=== PATIENT | female | born 2000 ===

== ENCOUNTER 2020-04-25 16:29 | Outpatient (REF) | payer OTHER, SELFPAY ==
[2020-04-25 17:55] LABS: HCG Quantitative < 2 mIU/mL
== END 2020-04-25 16:30 | disposition home or self-care (01) ==
LOC: HO.LAB 16:29
PROVIDERS: Visit Provider Advanced Practice Midwife
DX: O20.0 Threatened abortion (principal); Z3A.00 Weeks of gestation of pregnancy not specified
CPT/HCPCS: 36415; 84702

== ENCOUNTER 2020-08-12 18:21 | Emergency (ER) | payer OTHER, SELFPAY | END 2020-08-12 22:16 | disposition left against medical advice (07) | PROVIDERS: Emergency Provider Emergency Medicine | DX: O26.899 Other specified pregnancy related conditions, unspecified trimester (principal); R10.9 Unspecified abdominal pain ==

== ENCOUNTER 2020-08-29 09:24 | Outpatient (REF) | payer OTHER, SELFPAY | END 2020-08-29 09:25 | disposition home or self-care (01) | LOC: HO.LAB 09:24 | PROVIDERS: Visit Provider Internal Medicine | DX: Z20.822 Contact with and (suspected) exposure to COVID-19 (principal) | CPT/HCPCS: 36415; C9803; U0003; U0005 ==

== ENCOUNTER → 2020-09-15 10:24 | Outpatient (BNVA) | payer OTHER, SELFPAY | PROVIDERS: Visit Provider Advanced Practice Midwife | DX: Z34.90 Encounter for supervision of normal pregnancy, unspecified, unspecified trimester (principal) | CPT/HCPCS: 81025; 99202 ==

== ENCOUNTER → 2020-10-06 10:04 | Outpatient (BNVA) | payer OTHER, SELFPAY | PROVIDERS: Visit Provider Advanced Practice Midwife | DX: Z13.89 Encounter for screening for other disorder (principal) | CPT/HCPCS: 99212 ==

== ENCOUNTER 2020-10-10 12:27 | Outpatient (REF) | payer OTHER, SELFPAY ==
[2020-10-10 13:08] LABS: MANUAL DIFF FLAG NO
[2020-10-10 13:12] LABS: Basophils Percent Auto 0.3 % (0-2); Eosinophils Absolute Auto 0.1 X10*3/uL (0.0-0.4); Eosinophils Percent Auto 0.9 % (0-4); Hematocrit 38.5 % (37-47); Hemoglobin 12.8 g/dl (12.0-16.0); Imm Gran Abs Auto 0.04 X10*3/uL (0.00-0.03); Imm Gran Pct Auto 0.5 % (0.0-0.4); Lymphocytes Percent Auto 22.1 % (20-40); Mean Corpuscular HGB Conc 33.2 g/dl (31.0-35.0); Mean Corpuscular Hemoglobin 30.2 pg (27.0-33.0); Mean Corpuscular Volume 90.8 fL (80-98); Mean Platelet Volume 11.3 fL (9.4-12.3); Monocytes Absolute Auto 0.4 X10*3/uL (0.1-1.2); Monocytes Percent Auto 4.9 % (2-11); Neutrophils Absolute Auto 6.3 X10*3/uL (2.0-8.3); Neutrophils Percent Auto 71.3 % (45-73); Platelet Count 210 X10*3/uL (160-400); Red Blood Count 4.24 X10*6/uL (4.20-5.50); Red Cell Distribution Width 11.4 % (11.0-16.0); White Blood Count 8.8 X10*3/uL (4.8-10.8)
[2020-10-10 14:10] LABS: Syphilis Screen Nonreactive (Nonreactive)
[2020-10-10 14:35] LABS: Amphetamine Screen Urine Not Detected (Not Detect); Barbiturates, Urine Not Detected (Not Detect); Benzodiazepines Screen Urine Not Detected (Not Detect); Cannabinoid Screen Urine Not Detected (Not Detect); Cocaine Screen Urine Not Detected (Not Detect); Opiate Screen Urine Not Detected (Not Detect); Phencyclidine Screen Urine Not Detected (Not Detect)
[2020-10-11 04:28] LABS: HBsAGNum1 0.14 S/CO (0.00-0.99); HIV AB/AG Nonreactive (Nonreactive); HIV Num 1 0.08 S/CO (0.00-0.99); Hepatitis B Surface Antigen Negative (Negative)
[2020-10-11 04:37] LABS: ~HepC Num1 0.11 S/CO (0.00-0.79); ~Hepatitis C Antibody Nonreactive (Nonreactive)
[2020-10-11 10:23] LABS: Varicella IgG Antibody <135.00 index
== END 2020-10-10 12:28 | disposition home or self-care (01) ==
LOC: HO.LAB 12:27
PROVIDERS: Visit Provider Advanced Practice Midwife
DX: Z34.90 Encounter for supervision of normal pregnancy, unspecified, unspecified trimester (principal)
CPT/HCPCS: 80307; 85025; 86762; 86780; 86787; 86803; 86850; 86900; 86901; 87086; 87340; 87389

== ENCOUNTER 2020-10-11 14:57 | Outpatient (REF) | payer OTHER, SELFPAY | END 2020-10-11 14:58 | disposition home or self-care (01) | LOC: HO.LAB 14:57 | PROVIDERS: Visit Provider Internal Medicine | DX: Z20.822 Contact with and (suspected) exposure to COVID-19 (principal) | CPT/HCPCS: 36415; C9803; U0003; U0005 ==

== ENCOUNTER 2020-10-27 10:44 | Outpatient (REF) | payer OTHER, SELFPAY ==
[2020-10-27 17:10] LABS: CT PCR NOT DETECTED (Not Detect.); NG PCR NOT DETECTED (Not Detect.)
[2020-10-28 09:13] LABS: BV Int Neg Control Negative (Negative); BV Int Pos Control Positive (Positive)
== END 2020-10-27 10:45 | disposition home or self-care (01) ==
LOC: HO.LAB 10:44
PROVIDERS: Visit Provider Advanced Practice Midwife
DX: O09.291 Supervision of pregnancy with other poor reproductive or obstetric history, first trimester (principal); Z3A.10 10 weeks gestation of pregnancy
CPT/HCPCS: 81003; 87480; 87491; 87510; 87591; 87660; 88142; 99212

== ENCOUNTER 2020-11-04 08:22 | Outpatient (REF) | payer OTHER, SELFPAY ==
--- NOTE | ~2020-11-04 | US_ITS ---
EXAMINATION: OBSTETRICAL ULTRASOUND, FIRST TRIMESTER HISTORY: 20-year-old at 11.6 weeks of gestation NT screening COMPARISON: None in this TECHNIQUE: Real time transabdominal imaging with color and M-mode Doppler. FINDINGS: A single, live IUP CRL of 46.4 mm c/w 11.4wks is noted. Heart Rate: beats per minute. Normal yolk sac seen. NT was 1.1.mm. NB Present The embryo appears sonographically wnl for this GA. Left ovary is within normal limits. The right ovary was not visualized. GESTATIONAL AGE: 1. Established GA: 11.6 wks 2. GA from [facility]: 11.4 wks ESTIMATED DATE OF DELIVERY: 1. Established YUDY: 05/20/2021 2. YUDY from [facility]: 05/22/2021 US/US OB 1T nuc measure IMPRESSION: 1. Single live IUP 2. Size equals dates 3. NT of 1.1 mm MFM Consultation: I reviewed the ultrasound findings along with significance of NT measurement. The NT of less than 3mm is generally reassuring. However, the sensitivity for T21 detection is only 60%. I reviewed the availability of serum aneuploidy screening which includes cell-free DNA and placental protein based tests. I discussed the sensitivity, false-positive rate, and other limitations associated with each test. I also reviewed the availability of invasive diagnostic tests that are associated small but definite risk of miscarriage. We also reviewed the differences between screening tests and diagnostic tests. After our discussion, she opted for the First trimester screening that is based on cell-free DNA or non-invasive testing (NIPT). The result will be faxed to your office in approximately 7 days. A follow up at 18 weeks for survey has been scheduled. Thank you very much for this referral. Total time 20 minutes. The time spent was devoted to counseling the patient about the disease and diagnosis, coordinating care including reviewing her records, pertinent lab data and studies, as well as discussing diagnostic evaluation and workup, plan therapeutic interventions and future disposition of care. This includes any additional research needed to obtain further information in formulating the plan of care of this patient. This note was generated with a voice recognition program. Please excuse any errors which may have been overlooked during my review of this note. Sometimes these errors may affect the content or meaning of a given sentence.
== END 2020-11-04 08:23 | disposition home or self-care (01) ==
LOC: HO.US 08:22
PROVIDERS: Visit Provider Advanced Practice Midwife
DX: Z34.90 Encounter for supervision of normal pregnancy, unspecified, unspecified trimester (principal); Z36.82 Encounter for antenatal screening for nuchal translucency
CPT/HCPCS: 76813

== ENCOUNTER → 2020-11-24 10:18 | Outpatient (BNVA) | payer OTHER, SELFPAY | PROVIDERS: Visit Provider Advanced Practice Midwife | DX: O09.292 Supervision of pregnancy with other poor reproductive or obstetric history, second trimester (principal); O99.322 Drug use complicating pregnancy, second trimester; F12.20 Cannabis dependence, uncomplicated; O35.9XX0 Maternal care for (suspected) fetal abnormality and damage, unspecified, not applicable or unspecified; Z3A.14 14 weeks gestation of pregnancy | CPT/HCPCS: 81003; 99212 ==

== ENCOUNTER 2020-12-02 12:10 | Outpatient (REF) | payer OTHER, SELFPAY | END 2020-12-02 12:11 | disposition home or self-care (01) | LOC: HO.LAB 12:10 | PROVIDERS: Visit Provider Obstetrics & Gynecology | DX: R39.89 Other symptoms and signs involving the genitourinary system (principal) | CPT/HCPCS: 87086 ==

== ENCOUNTER 2020-12-23 11:32 | Outpatient (REF) | payer OTHER, SELFPAY ==
--- NOTE | ~2020-12-23 | US_ITS ---
EXAMINATION: US OBSTETRICAL CLINICAL INFORMATION: [age]-year-old at 18.5 weeks of gestation Screening for anomaly COMPARISON: 11/04/2020 TECHNIQUE: Real-time transabdominal ultrasound was performed using C1-5 megahertz transducer. FINDINGS: A single, active, fetus is seen in breech presentation. The placenta is anterior without previa, and the amniotic fluid volume is wnl. MEASUREMENTS: 1. Biparietal Diameter: 4.1 cm; 18.3 wks 2. Occipital Frontal Diameter: 5.2 cm 3. Head Circumference: 15.3 cm; 18.3 wks 4. Abdominal Circumference: 13.3 cm; 18.6 wks 5. Femur Length: 2.9 cm; 18.6 wks 6. Humerus Length: 2.6 cm; 18.2 wks 7. Tibia Length: 2.4 cm; 18.4 wks 8. Ulna Length: 2.6 cm; 19.4 wks 9. Lateral ventricle: 0.7 cm 10. Cerebellum: 1.8 cm; 18.6 wks 11. Cisterna Magna: 0.5 cm 12. Nuchal Fold: 2.8 mm 13. Heart Rate: 161 beats per minute Rt ovary: Unable to visualize Lt ovary: normal Cervical length 3.8 cm on T/A. GESTATIONAL AGE: 1. Established GA: 18.6 wks 2. GA from [facility]: 18.5 wks ESTIMATED DATE OF DELIVERY: 1. Established YUDY: 05/20/2021 2. YUDY from [facility]: 05/21/2021 ANATOMY: The visualized anatomy includes but not limited to: 1. Cranium: Normal 2. Intracranial anatomy: cavum septum pellucidi, lateral ventricles, choroid plexus, cerebellum, posterior fossa, third and fourth ventricles. 3. face: orbits, lip/palate, profile, nasal bone 4. Heart: four-chamber view of the heart, ventricular septum, foramen ovale, pulmonary vein, left and right outflow tracts, three-vessel view, 3 vessel trachea view, aortic and ductal arches, situs.. 5. Diaphragm: Normal 6. Abdominal wall: Normal 7. Cord Insertion: Normal 8. Spine: Cervical, thoracic, lumbar, sacral. 9. Stomach: Normal size and shape 10. Right Kidney: Normal 11. Left Kidney: Normal 12. 3 vessel cord: Normal 13. Upper extremity: Open hands, fifth digit. 14. Lower extremity: Tibia, fibula, bilateral feet. 15. Bladder: Normal 16. Genitalia: Female, patient aware US/US OB /maternal det add IMPRESSION: 1. Single, living, intrauterine with appropriate biometry. 2. Normal survey DISCUSSION: I reviewed today's ultrasound findings. We discussed the limitations of ultrasound in diagnosing aneuploidy and other congenital abnormalities. I reviewed the differences between screening test and diagnostic test. Amniocentesis was discussed and declined. She was informed that the baseline incidence of congenital abnormalities is approximately 3-5%. Not all these conditions are diagnosable in utero. RECOMMENDATIONS: 1. Follow-up when necessary. Thank you for allowing me to participate in her care. Total time 20 minutes. The time spent was devoted to counseling the patient about the disease and diagnosis, coordinating care including reviewing her records, pertinent lab data and studies, as well as discussing diagnostic evaluation and workup, plan therapeutic interventions and future disposition of care. This includes any additional research needed to obtain further information in formulating the plan of care of this patient. This note was generated with a voice recognition program. Please excuse any errors which may have been overlooked during my review of this note. Sometimes these errors may affect the content or meaning of a given sentence.
== END 2020-12-23 11:33 | disposition home or self-care (01) ==
LOC: HO.US 11:32
PROVIDERS: Visit Provider Obstetrics & Gynecology
DX: Z34.92 Encounter for supervision of normal pregnancy, unspecified, second trimester (principal); Z3A.18 18 weeks gestation of pregnancy
CPT/HCPCS: 76811; 76812; 81003; 99212

== ENCOUNTER → 2021-01-19 10:50 | Outpatient (BNVA) | payer OTHER, SELFPAY | PROVIDERS: Visit Provider Advanced Practice Midwife | DX: Z34.92 Encounter for supervision of normal pregnancy, unspecified, second trimester (principal); Z3A.22 22 weeks gestation of pregnancy | CPT/HCPCS: 81003; 99212 ==

== ENCOUNTER → 2021-02-16 10:26 | Outpatient (BNVA) | payer OTHER, SELFPAY | PROVIDERS: Visit Provider Advanced Practice Midwife | DX: Z34.92 Encounter for supervision of normal pregnancy, unspecified, second trimester (principal); Z3A.26 26 weeks gestation of pregnancy | CPT/HCPCS: 99212 ==

== ENCOUNTER 2021-03-03 09:48 | Outpatient (REF) | payer OTHER, SELFPAY ==
[2021-03-03 12:56] LABS: Hematocrit 36.8 % (37-47); Hemoglobin 12.1 g/dl (12.0-16.0); Mean Corpuscular HGB Conc 32.9 g/dl (31.0-35.0); Mean Corpuscular Volume 91.3 fL (80-98); Mean Platelet Volume 11.6 fL (9.4-12.3); Platelet Count 190 X10*3/uL (160-400); Red Blood Count 4.03 X10*6/uL (4.20-5.50); Red Cell Distribution Width 11.9 % (11.0-16.0); White Blood Count 8.4 X10*3/uL (4.8-10.8)
[2021-03-03 13:25] LABS: Glucose 1 Hour PP 50gm Dose 54 mg/dL (60-140)
[2021-03-04 10:04] LABS: Syphilis Screen Nonreactive (Nonreactive)
== END 2021-03-03 09:49 | disposition home or self-care (01) ==
LOC: HO.LAB 09:48
PROVIDERS: Visit Provider Advanced Practice Midwife
DX: O99.323 Drug use complicating pregnancy, third trimester (principal); O26.843 Uterine size-date discrepancy, third trimester; F12.90 Cannabis use, unspecified, uncomplicated; Z3A.28 28 weeks gestation of pregnancy; Z20.2 Contact with and (suspected) exposure to infections with a predominantly sexual mode of transmission
CPT/HCPCS: 36415; 81003; 85027; 86780; 99212

== ENCOUNTER 2021-03-10 08:36 | Outpatient (REF) | payer OTHER, SELFPAY ==
--- NOTE | ~2021-03-10 | US_ITS ---
EXAMINATION: OBSTETRICAL ULTRASOUND, Follow up HISTORY: 20-year-old at 29.6 weeks of gestation Size date discrepancy COMPARISON: 12/23/2020 TECHNIQUE: Real time transabdominal imaging with color and M-mode Doppler. PRESENTATION: Vertex PLACENTA LOCATION: Anterior without previa AMNIOTIC FLUID: HANNAH 11.4 cm MEASUREMENTS: 1. Biparietal Diameter: 7.3 cm; 29.3 wks 2. Head Circumference: 26.9 cm; 29.3 wks 3. Abdominal Circumference: 24.9 cm; 29.1 wks 4. Femur Length: 5.5 cm; 29.1 wks 5. Heart Rate: 155 beats per minute WEIGHT: EFW: 1341 grams (2 lbs 15 oz) -- 16 %. BIOPHYSICAL PROFILE: Motion: 2 Tone: 2 Breathin Amniotic Fluid: 2 Total score: 8/8 GESTATIONAL AGE: 1. Established GA: 29.6 wks 2. GA from [facility]: 29.2 wks ESTIMATED DATE OF DELIVERY: 1. Established YUDY: 05/20/2021 2. YUDY from A: 06/03/2021 US/US OB follow up IMPRESSION: 1. A single active fetus is in vertex presentation 2. EFW corresponds to 16th percentile 3. Reassuring biophysical profile I reviewed today's findings and informed her of the limitations and estimating weights. I also discussed the clinical significance of EFW corresponding to 16th percentile. In general as long as the EFW remains above 10th percentile for this gestational age, the fetus is considered appropriately grown. She informs me that her weight was approximately 6 pounds. Recommend a follow-up in 4 weeks. (scheduled) Thank you very much for this referral. Total time 30 minutes. The time spent was devoted to counseling the patient about the disease and diagnosis, coordinating care including reviewing her records, pertinent lab data and studies, as well as discussing diagnostic evaluation and workup, plan therapeutic interventions and future disposition of care. This includes any additional research needed to obtain further information in formulating the plan of care of this patient. This note was generated with a voice recognition program. Please excuse any errors which may have been overlooked during my review of this note. Sometimes these errors may affect the content or meaning of a given sentence.
== END 2021-03-10 08:37 | disposition home or self-care (01) ==
LOC: HO.US 08:36
PROVIDERS: PCP Pediatrics; Visit Provider Advanced Practice Midwife
DX: O26.843 Uterine size-date discrepancy, third trimester (principal); Z3A.29 29 weeks gestation of pregnancy
CPT/HCPCS: 76816

== ENCOUNTER → 2021-03-20 08:10 | Outpatient (BNVA) | payer OTHER, SELFPAY | PROVIDERS: PCP Pediatrics; Visit Provider Advanced Practice Midwife | DX: O36.8130 Decreased fetal movements, third trimester, not applicable or unspecified (principal); O26.843 Uterine size-date discrepancy, third trimester; O28.8 Other abnormal findings on antenatal screening of mother; Z3A.31 31 weeks gestation of pregnancy | CPT/HCPCS: 59025; 81003; 99212 ==

== ENCOUNTER 2021-04-07 09:29 | Outpatient (REF) | payer OTHER, SELFPAY ==
--- NOTE | ~2021-04-07 | US_ITS ---
EXAMINATION: OBSTETRICAL ULTRASOUND, Follow up HISTORY: A 20-year-old at the 33.6 weeks of gestation Size date discrepancy COMPARISON: 03/10/2021 TECHNIQUE: Real time transabdominal imaging with color and M-mode Doppler. PRESENTATION: Vertex PLACENTA LOCATION: Anterior without previa AMNIOTIC FLUID: HANNAH 7.9 cm MEASUREMENTS: 1. Biparietal Diameter: 7.7 cm; 31.1 wks 2. Head Circumference: 28.6 cm; 31.4 wks 3. Abdominal Circumference: 28.0 cm; 32.1 wks 4. Femur Length: 6.1 cm; 31.6 wks 5. Heart Rate: 153 beats per minute WEIGHT: EFW: 1845 grams (4 lbs 1 oz) -- 5 %. BIOPHYSICAL PROFILE: Motion: 2 Tone: 2 Breathin Amniotic Fluid: 2 Total score: 8/8 Umbilical artery Doppler showed SD ratio of 3.1. GESTATIONAL AGE: 1. Established GA: 33.6 wks 2. GA from [facility]: 31.5 wks ESTIMATED DATE OF DELIVERY: 1. Established YUDY: 05/20/2021 2. YUDY from [facility]: 06/04/2021 US/US OB velocimetry umbilical ar IMPRESSION: 1. A single active fetus is in vertex presentation 2. Size less than dates, EFW corresponds to 5%. This represents less than expected interval growth 3. Reassuring biophysical profile 4. Normal umbilical artery Doppler I reviewed today's ultrasound findings and informed her that of the limitations of ultrasound and estimating weights. The EFW today is consistent with the growth restriction. I reassured her that the approximately 80% of fetuses whose EFW falls below the 10th percentile are constitutionally small but healthy fetuses who are growing to their full genetic potential. Approximately 20% may be experiencing placental insufficiency. Unfortunately it can be difficult to distinguish the 2 in utero. We discussed some of the sonographic parameters that can be used as the attending direct marker for placental function. Along with the testing, interval growth evaluation will be important in determining the management of fetuses with possible growth restriction. For now, she is to begin weekly NST as well as BPP and UA Doppler. A repeat growth will be done in 2 weeks. Thank you very much for this referral. Total time 30 minutes. The time spent was devoted to counseling the patient about the disease and diagnosis, coordinating care including reviewing her records, pertinent lab data and studies, as well as discussing diagnostic evaluation and workup, plan therapeutic interventions and future disposition of care. This includes any additional research needed to obtain further information in formulating the plan of care of this patient. This note was generated with a voice recognition program. Please excuse any errors which may have been overlooked during my review of this note. Sometimes these errors may affect the content or meaning of a given sentence.
== END 2021-04-07 09:30 | disposition home or self-care (01) ==
LOC: HO.US 09:29
PROVIDERS: Visit Provider Advanced Practice Midwife
DX: O36.5990 Maternal care for other known or suspected poor fetal growth, unspecified trimester, not applicable or unspecified (principal)
CPT/HCPCS: 76816; 76820

== ENCOUNTER → 2021-04-10 08:35 | Outpatient (BNVA) | payer OTHER, SELFPAY | PROVIDERS: PCP Pediatrics; Visit Provider Obstetrics & Gynecology | DX: O36.5930 Maternal care for other known or suspected poor fetal growth, third trimester, not applicable or unspecified (principal); Z3A.34 34 weeks gestation of pregnancy | CPT/HCPCS: 59025; 99212 ==

== ENCOUNTER 2021-04-11 10:16 | Outpatient (REF) | payer OTHER, SELFPAY ==
[2021-04-12 08:08] LABS: Syphilis Screen Nonreactive (Nonreactive)
[2021-04-13 06:11] LABS: Rubella IgM Antibody <20.00 AU/mL; Toxoplasma IgG Antibody <7.20 IU/mL; Toxoplasma IgM Antibody <8.00 AU/mL
[2021-04-15 08:57] LABS: CMV DNA PCR Qn Source Whole Blood; CMV DNA Qn PCR <2.30 log IU/mL (<2.30); CMV DNA Qn Real Time PCR <200 IU/mL (<200)
[2021-04-17 18:52] LABS: HSV 1 IgM IFA Negative (Negative); HSV 2 IgM IFA Negative (Negative)
== END 2021-04-11 10:17 | disposition home or self-care (01) ==
LOC: HO.LAB 10:16
PROVIDERS: PCP Pediatrics; Visit Provider Obstetrics & Gynecology
DX: O36.5930 Maternal care for other known or suspected poor fetal growth, third trimester, not applicable or unspecified (principal); Z3A.34 34 weeks gestation of pregnancy
CPT/HCPCS: 36415; 59025; 86695; 86696; 86762; 86777; 86778; 86780; 87497; 90471; 90715; 99212

== ENCOUNTER 2021-04-14 09:35 | Outpatient (REF) | payer OTHER, SELFPAY ==
--- NOTE | ~2021-04-14 | US_ITS ---
EXAMINATION: US OBSTETRICAL (BIOPHYSICAL PROFILE) CLINICAL INFORMATION: A 20-year-old at 34.6 weeks of gestation growth restriction COMPARISON: 04/07/2021 TECHNIQUE: Biophysical profile is performed over 30 minutes with assessment of breathing, gross body movement, tone, and qualitative amniotic fluid volume. FINDINGS: POSITION: Cephalic PLACENTA: Anterior without previa AMNIOTIC FLUID INDEX: 6.6 cm CARDIAC ACTIVITY: 147 beats per minute BIOPHYSICAL PROFILE: Motion: 2 Tone: 2 Breathin Amniotic Fluid: 2 The total biophysical score is 8/8 UA Doppler: SD 2.8 US/US OB biophysical profile IMPRESSION: 1. Single intrauterine gestation in vertex position. 2. Reassuring BPP and HANNAH 3. Normal SD ratio in the umbilical artery I reviewed today's findings and gave her reassurance. The Doppler flow study of the umbilical artery showed normal SD ratio. She is to return next week for repeat interval growth evaluation. Depending on the findings, decision for further management may include an induction of labor at as early as a 37 weeks of gestation. I reviewed the limitations of ultrasound and estimating weights. She reports active movements. She should continue weekly NST. Thank you for allowing me to participate in her care. Total time 20 minutes. The time spent was devoted to counseling the patient about the disease and diagnosis, coordinating care including reviewing her records, pertinent lab data and studies, as well as discussing diagnostic evaluation and workup, plan therapeutic interventions and future disposition of care. This includes any additional research needed to obtain further information in formulating the plan of care of this patient. This note was generated with a voice recognition program. Please excuse any errors which may have been overlooked during my review of this note. Sometimes these errors may affect the content or meaning of a given sentence.
--- NOTE | ~2021-04-14 | US_ITS ---
EXAMINATION: US OBSTETRICAL (BIOPHYSICAL PROFILE) CLINICAL INFORMATION: A 20-year-old at 34.6 weeks of gestation growth restriction COMPARISON: 04/07/2021 TECHNIQUE: Biophysical profile is performed over 30 minutes with assessment of breathing, gross body movement, tone, and qualitative amniotic fluid volume. FINDINGS: POSITION: Cephalic PLACENTA: Anterior without previa AMNIOTIC FLUID INDEX: 6.6 cm CARDIAC ACTIVITY: 147 beats per minute BIOPHYSICAL PROFILE: Motion: 2 Tone: 2 Breathin Amniotic Fluid: 2 The total biophysical score is 8/8 UA Doppler: SD 2.8 US/US OB velocimetry umbilical ar IMPRESSION: 1. Single intrauterine gestation in vertex position. 2. Reassuring BPP and HANNAH 3. Normal SD ratio in the umbilical artery I reviewed today's findings and gave her reassurance. The Doppler flow study of the umbilical artery showed normal SD ratio. She is to return next week for repeat interval growth evaluation. Depending on the findings, decision for further management may include an induction of labor at as early as a 37 weeks of gestation. I reviewed the limitations of ultrasound and estimating weights. She reports active movements. She should continue weekly NST. Thank you for allowing me to participate in her care. Total time 20 minutes. The time spent was devoted to counseling the patient about the disease and diagnosis, coordinating care including reviewing her records, pertinent lab data and studies, as well as discussing diagnostic evaluation and workup, plan therapeutic interventions and future disposition of care. This includes any additional research needed to obtain further information in formulating the plan of care of this patient. This note was generated with a voice recognition program. Please excuse any errors which may have been overlooked during my review of this note. Sometimes these errors may affect the content or meaning of a given sentence.
== END 2021-04-14 09:36 | disposition home or self-care (01) ==
LOC: HO.US 09:35
PROVIDERS: Visit Provider Advanced Practice Midwife
DX: O36.5990 Maternal care for other known or suspected poor fetal growth, unspecified trimester, not applicable or unspecified (principal)
CPT/HCPCS: 76819; 76820

== ENCOUNTER → 2021-04-18 14:03 | Outpatient (BNVA) | payer OTHER, SELFPAY | PROVIDERS: PCP Pediatrics; Visit Provider Obstetrics & Gynecology | DX: O36.5930 Maternal care for other known or suspected poor fetal growth, third trimester, not applicable or unspecified (principal); Z3A.35 35 weeks gestation of pregnancy | CPT/HCPCS: 59025; 99212 ==

== ENCOUNTER 2021-04-21 | Outpatient (REF) | payer OTHER, SELFPAY | END 2021-04-21 00:01 | disposition home or self-care (01) | LOC: CF | PROVIDERS: PCP Pediatrics; Visit Provider Advanced Practice Midwife | DX: O36.5930 Maternal care for other known or suspected poor fetal growth, third trimester, not applicable or unspecified (principal); Z3A.35 35 weeks gestation of pregnancy | CPT/HCPCS: 99212 ==

== ENCOUNTER 2021-04-21 13:25 | Outpatient (REF) | payer OTHER, SELFPAY ==
[2021-04-22 01:57] LABS: CT PCR NOT DETECTED (Not Detect.); NG PCR NOT DETECTED (Not Detect.)
== END 2021-04-21 13:26 | disposition home or self-care (01) ==
LOC: HO.LAB 13:25
PROVIDERS: Visit Provider Advanced Practice Midwife
DX: Z34.92 Encounter for supervision of normal pregnancy, unspecified, second trimester (principal)
CPT/HCPCS: 87081; 87147; 87491; 87591

== ENCOUNTER 2021-08-02 12:43 | Outpatient (REF) | payer OTHER, SELFPAY ==
[2021-08-02 13:46] LABS: Binax Internal Control QC Valid; Binax Now Covid-19 Ag Positive (Negative)
== END 2021-08-02 12:44 | disposition home or self-care (01) ==
LOC: HO.LAB 12:43
PROVIDERS: Visit Provider Internal Medicine
DX: Z20.822 Contact with and (suspected) exposure to COVID-19 (principal)
CPT/HCPCS: C9803

== ENCOUNTER 2021-08-07 10:47 | Outpatient (REF) | payer OTHER, SELFPAY ==
[2021-08-07 11:58] LABS: Binax Internal Control QC Valid; Binax Now Covid-19 Ag Positive (Negative)
== END 2021-08-07 10:48 | disposition home or self-care (01) ==
LOC: HO.LAB 10:47
PROVIDERS: Visit Provider Internal Medicine
DX: Z20.822 Contact with and (suspected) exposure to COVID-19 (principal)
CPT/HCPCS: C9803

== ENCOUNTER 2021-08-17 12:10 | Outpatient (REF) | payer OTHER, SELFPAY ==
[2021-08-17 12:25] LABS: Binax Internal Control QC Valid; Binax Now Covid-19 Ag Negative (Negative)
== END 2021-08-17 12:11 | disposition home or self-care (01) ==
LOC: HO.LAB 12:10
PROVIDERS: Visit Provider Internal Medicine
DX: Z20.822 Contact with and (suspected) exposure to COVID-19 (principal)
CPT/HCPCS: C9803

== ENCOUNTER 2021-08-29 13:19 | Outpatient (REF) | payer OTHER, SELFPAY ==
[2021-08-29 13:55] LABS: IDNOW Serial# 16C4AD1C
[2021-08-29 13:56] LABS: COVID-19 Test Negative (Negative)
== END 2021-08-29 13:20 | disposition home or self-care (01) ==
LOC: HO.LAB 13:19
PROVIDERS: Visit Provider Internal Medicine
DX: Z20.822 Contact with and (suspected) exposure to COVID-19 (principal)
CPT/HCPCS: 87635; C9803

== ENCOUNTER 2022-02-09 16:06 | Outpatient (REF) | payer OTHER, SELFPAY ==
[2022-02-09 18:18] LABS: CT PCR NOT DETECTED (Not Detect.); NG PCR NOT DETECTED (Not Detect.)
[2022-02-10 10:08] LABS: BV Int Neg Control Negative (Negative); BV Int Pos Control Positive (Positive)
== END 2022-02-09 16:07 | disposition home or self-care (01) ==
LOC: HO.LAB 16:06
PROVIDERS: Visit Provider Advanced Practice Midwife
DX: N89.8 Other specified noninflammatory disorders of vagina (principal); N92.6 Irregular menstruation, unspecified
CPT/HCPCS: 87480; 87491; 87510; 87591; 87660; 99212

== ENCOUNTER 2022-05-04 10:30 | Outpatient (REF) | payer OTHER, SELFPAY ==
[2022-05-04 12:04] LABS: HCG Quantitative 2029 mIU/mL
[2022-05-04 14:19] LABS: CT PCR NOT DETECTED (Not Detect.); NG PCR NOT DETECTED (Not Detect.)
[2022-05-05 14:25] LABS: BV Int Neg Control Negative (Negative); BV Int Pos Control Positive (Positive)
== END 2022-05-04 10:31 | disposition home or self-care (01) ==
LOC: HO.LNP 10:30
PROVIDERS: PCP Internal Medicine; Visit Provider Advanced Practice Midwife
DX: O26.899 Other specified pregnancy related conditions, unspecified trimester (principal); R10.2 Pelvic and perineal pain
CPT/HCPCS: 81025; 84702; 87480; 87491; 87510; 87591; 87660; 99212

== ENCOUNTER 2022-05-04 11:25 | Outpatient (REF) | payer OTHER, SELFPAY | END 2022-05-04 11:26 | disposition home or self-care (01) | LOC: HO.LAB 11:25 | PROVIDERS: Visit Provider Advanced Practice Midwife | DX: Z13.89 Encounter for screening for other disorder (principal) ==

== ENCOUNTER 2022-05-07 14:31 | Outpatient (REF) | payer OTHER, SELFPAY ==
--- NOTE | ~2022-05-07 | US_ITS ---
EXAMINATION: US OBSTETRICAL ULTRASOUND CLINICAL INFORMATION: Early . irregular menstruation. Uncertain dates. COMPARISON: None. LMP: 03/26/2022. Gestational age by maternal dates is 6 weeks 0 days. Estimated date of delivery by maternal dates is 12/31/2022. TECHNIQUE: Ultrasound of the maternal pelvis is performed using transabdominal and transvaginal transducers. Transvaginal imaging is performed due to inadequate visualization transabdominally. M-mode Doppler is also performed. FINDINGS: There is a small intrauterine gestational sac demonstrated with tiny yolk sac suggested on transvaginal imaging. No visible embryo at this time. Mean Sac Dimension: 0.59 cm (5 weeks 1 day +/- 4 days). MATERNAL ADNEXA: The right maternal ovary measures 3.6 x 1.8 x 1.4 cm. The left maternal ovary measures 2.4 x 2.0 x 2.2 cm. There is a tiny hyperechoic area within the left ovary possibly tiny dermoid measuring under 0.5 cm. There is no significant maternal adnexal mass. No maternal pelvic ascites. US/US OB pelvic and transvaginal IMPRESSION: 1. Small intrauterine gestational sac under 1 cm with probable tiny yolk sac. No visible embryo at this time. Average sac dimension consistent with 5 weeks 1 day. 2. No maternal adnexal mass or pelvic ascites. 3. Recommend follow-up beta hCG and ultrasound to confirm developing as usual.
== END 2022-05-07 14:32 | disposition home or self-care (01) ==
LOC: HO.HMGCX 14:31
PROVIDERS: Visit Provider Advanced Practice Midwife
DX: Z34.91 Encounter for supervision of normal pregnancy, unspecified, first trimester (principal); Z3A.01 Less than 8 weeks gestation of pregnancy
CPT/HCPCS: 76801; 76817

== ENCOUNTER 2022-05-08 14:49 | Outpatient (REF) | payer OTHER, SELFPAY ==
[2022-05-08 15:41] LABS: HCG Quantitative 7216 mIU/mL
== END 2022-05-08 14:50 | disposition home or self-care (01) ==
LOC: HO.LAB 14:49
PROVIDERS: Visit Provider Advanced Practice Midwife
DX: Z34.90 Encounter for supervision of normal pregnancy, unspecified, unspecified trimester (principal)
CPT/HCPCS: 36415; 84702; 99212

== ENCOUNTER 2022-05-14 09:27 | Outpatient (REF) | payer OTHER, SELFPAY ==
--- NOTE | ~2022-05-14 | US_ITS ---
EXAMINATION: US OBSTETRICAL ULTRASOUND CLINICAL INFORMATION: Check viability COMPARISON: Previous exam 05/07/2022. LMP: 03/26/2022. Gestational age by maternal dates is 7 weeks 0 days. Estimated date of delivery by maternal dates is 12/31/2022. TECHNIQUE: Transverse abdominal and transvaginal first trimester OB ultrasound. FINDINGS: There is a single intrauterine gestational sac with visible yolk sac, embryo/fetus, and cardiac activity. There is no significant subchorionic hemorrhage or hematoma. HR: 109 beats per minute. CRL (crown rump length): 0.24 cm (5 weeks 6 days +/- 4 days). YUDY (estimated date of delivery): 01/08/2023 +/- 4 days. MATERNAL ADNEXA: The right maternal ovary measures 3.1 x 2.2 x 1.9 cm. There is a 1.6 x 1.2 x 1.3 cm complex cyst probably representing a corpus luteum. The left maternal ovary measures 2.7 x 1.9 x 1.8 cm. Stable small nonspecific hyperechoic area in the left ovary measuring 4 x 2 x 3 mm. There is a small amount of fluid in the pelvis. US/US OB pelvic and transvaginal IMPRESSION: 1. Single intrauterine gestation with ultrasound gestational age of 5 weeks 6 days +/- 4 days. 2. Estimated date of delivery is 01/08/2023 +/- 4 days.
[2022-05-14 11:34] LABS: HCG Quantitative 33997 mIU/mL
== END 2022-05-14 09:28 | disposition home or self-care (01) ==
LOC: HO.US 09:27
PROVIDERS: Visit Provider Obstetrics & Gynecology
DX: O20.9 Hemorrhage in early pregnancy, unspecified (principal)
CPT/HCPCS: 36415; 76801; 76817; 84702; 99212

== ENCOUNTER 2022-05-29 11:09 | Outpatient (REF) | payer OTHER, SELFPAY ==
[2022-05-29 11:42] LABS: Hematocrit 35.1 % (37.0-47.0); Hemoglobin 11.8 g/dl (12.0-16.0); Mean Corpuscular HGB Conc 33.6 g/dl (31.0-35.0); Mean Corpuscular Hemoglobin 30.1 pg (27.0-33.0); Mean Corpuscular Volume 89.5 fL (80.0-98.0); Mean Platelet Volume 11.3 fL (9.4-12.3); Platelet Count 193 X10*3/uL (160-400); Red Blood Count 3.92 X10*6/uL (4.20-5.50); Red Cell Distribution Width 12.2 % (11.0-16.0); White Blood Count 8.9 X10*3/uL (4.8-10.8)
[2022-05-29 13:11] LABS: Amphetamine Screen Urine Not Detected (Not Detect); Barbiturates, Urine Not Detected (Not Detect); Benzodiazepines Screen Urine Not Detected (Not Detect); Cannabinoid Screen Urine Not Detected (Not Detect); Cocaine Screen Urine Not Detected (Not Detect); Fentanyl, urine Not Detected (Not Detect); Opiate Screen Urine Not Detected (Not Detect)
[2022-05-29 13:29] LABS: Phencyclidine Screen Urine Not Detected (Not Detect)
[2022-05-30 05:51] LABS: Syphilis Screen Nonreactive (Nonreactive)
[2022-05-30 06:02] LABS: HBsAGNum1 0.16 S/CO (0.00-0.99); HIV AB/AG Nonreactive (Nonreactive); HIV Num 1 0.09 S/CO (0.00-0.99); Hepatitis B Surface Antigen Negative (Negative); ~HepC Num1 0.16 S/CO (0.00-0.79); ~Hepatitis C Antibody Nonreactive (Nonreactive)
[2022-05-30 11:07] LABS: Rubella IgG Antibody 1.52 Index
[2022-05-30 17:27] LABS: Varicella IgG Antibody <135.00 index
[2022-06-06 09:51] LABS: CF Ethnicity NG; Cystic Fibrosis NEGATIVE (NEGATIVE)
== END 2022-05-29 11:10 | disposition home or self-care (01) ==
LOC: HO.LAB 11:09
PROVIDERS: Visit Provider Obstetrics & Gynecology
DX: Z34.90 Encounter for supervision of normal pregnancy, unspecified, unspecified trimester (principal)
CPT/HCPCS: 80307; 81220; 85027; 86762; 86780; 86787; 86803; 86850; 86900; 87086; 87340; 87389

== ENCOUNTER → 2022-06-13 11:01 | Outpatient (BNVA) | payer OTHER, SELFPAY | PROVIDERS: PCP Internal Medicine; Visit Provider Obstetrics & Gynecology | DX: O09.299 Supervision of pregnancy with other poor reproductive or obstetric history, unspecified trimester (principal); Z3A.00 Weeks of gestation of pregnancy not specified | CPT/HCPCS: 99212 ==

== ENCOUNTER 2022-06-19 11:21 | Outpatient (REF) | payer OTHER, SELFPAY ==
[2022-06-19 14:04] LABS: CT PCR NOT DETECTED (Not Detect.); NG PCR NOT DETECTED (Not Detect.)
[2022-06-20 10:23] LABS: BV Int Neg Control Negative (Negative); BV Int Pos Control Positive (Positive)
== END 2022-06-19 11:22 | disposition home or self-care (01) ==
LOC: HO.LNP 11:21
PROVIDERS: Visit Provider Advanced Practice Midwife
DX: Z34.91 Encounter for supervision of normal pregnancy, unspecified, first trimester (principal); Z3A.11 11 weeks gestation of pregnancy
CPT/HCPCS: 87480; 87491; 87510; 87591; 87660; 99212

== ENCOUNTER 2022-07-18 11:18 | Outpatient (REF) | payer OTHER, SELFPAY ==
[2022-07-18 14:25] LABS: Alanine Aminotransferase 11 U/L (0-31); Aspartate Amino Transferase 16 U/L (5-31); Blood Urea Nitrogen 7 mg/dL (9-16)
[2022-07-18 14:32] LABS: Creatinine Urine 129.21 mg/dL; Protein/Creatinine Ratio, Ur 0.09 (<0.2); Total Protein Urine Random 11 mg/dL (<12)
== END 2022-07-18 11:19 | disposition home or self-care (01) ==
LOC: HO.LAB 11:18
PROVIDERS: PCP Internal Medicine; Visit Provider Advanced Practice Midwife
DX: Z23 Encounter for immunization (principal); O26.892 Other specified pregnancy related conditions, second trimester; R51.9 Headache, unspecified; Z3A.15 15 weeks gestation of pregnancy
CPT/HCPCS: 36415; 84156; 84450; 84460; 84520; 90471; 90686; 99212

== ENCOUNTER → 2022-08-16 11:30 | Outpatient (BNVA) | payer OTHER, SELFPAY | PROVIDERS: PCP Internal Medicine; Visit Provider Advanced Practice Midwife | DX: Z34.82 Encounter for supervision of other normal pregnancy, second trimester (principal); Z3A.19 19 weeks gestation of pregnancy | CPT/HCPCS: 81003; 99212 ==

== ENCOUNTER → 2022-09-14 15:38 | Outpatient (BNVA) | payer OTHER, SELFPAY | PROVIDERS: PCP Internal Medicine; Visit Provider Advanced Practice Midwife | DX: O99.820 Streptococcus B carrier state complicating pregnancy (principal); O09.292 Supervision of pregnancy with other poor reproductive or obstetric history, second trimester; Z3A.23 23 weeks gestation of pregnancy | CPT/HCPCS: 99212 ==

== ENCOUNTER → 2022-10-15 15:38 | Outpatient (BNVA) | payer OTHER, SELFPAY | PROVIDERS: PCP Internal Medicine; Visit Provider Advanced Practice Midwife | DX: O36.5920 Maternal care for other known or suspected poor fetal growth, second trimester, not applicable or unspecified (principal); O99.820 Streptococcus B carrier state complicating pregnancy; O14.92 Unspecified pre-eclampsia, second trimester; Z3A.27 27 weeks gestation of pregnancy | CPT/HCPCS: 99212 ==

== ENCOUNTER 2022-10-24 13:15 | Outpatient (REF) | payer OTHER, SELFPAY ==
[2022-10-24 16:02] LABS: Hematocrit 28.6 % (37.0-47.0); Hemoglobin 9.5 g/dl (12.0-16.0); Mean Corpuscular HGB Conc 33.2 g/dl (31.0-35.0); Mean Corpuscular Hemoglobin 30.9 pg (27.0-33.0); Mean Corpuscular Volume 93.2 fL (80.0-98.0); Mean Platelet Volume 11.9 fL (9.4-12.3); Platelet Count 191 X10*3/uL (160-400); Red Blood Count 3.07 X10*6/uL (4.20-5.50); Red Cell Distribution Width 12.5 % (11.0-16.0); White Blood Count 6.8 X10*3/uL (4.8-10.8)
[2022-10-24 16:22] LABS: Glucose 1 Hour PP 50gm Dose 71 mg/dL (60-140)
[2022-10-26 03:34] LABS: Syphilis Screen Nonreactive (Nonreactive)
== END 2022-10-24 13:16 | disposition home or self-care (01) ==
LOC: HO.LAB 13:15
PROVIDERS: Visit Provider Advanced Practice Midwife
DX: Z34.93 Encounter for supervision of normal pregnancy, unspecified, third trimester (principal); Z20.2 Contact with and (suspected) exposure to infections with a predominantly sexual mode of transmission
CPT/HCPCS: 36415; 82950; 85027; 86780

== ENCOUNTER → 2022-10-31 11:13 | Outpatient (BNVA) | payer OTHER, SELFPAY | PROVIDERS: PCP Internal Medicine; Visit Provider Advanced Practice Midwife | DX: O99.013 Anemia complicating pregnancy, third trimester (principal); D50.9 Iron deficiency anemia, unspecified; O09.293 Supervision of pregnancy with other poor reproductive or obstetric history, third trimester; Z3A.30 30 weeks gestation of pregnancy | CPT/HCPCS: 81003; 99212 ==

== ENCOUNTER 2022-11-07 13:43 | Outpatient (REF) | payer OTHER, SELFPAY ==
[2022-11-08 03:46] LABS: CT PCR NOT DETECTED (Not Detect.); NG PCR NOT DETECTED (Not Detect.)
[2022-11-08 11:06] LABS: BV Int Neg Control Negative (Negative); BV Int Pos Control Positive (Positive)
== END 2022-11-07 13:44 | disposition home or self-care (01) ==
LOC: HO.LNP 13:43
PROVIDERS: PCP Internal Medicine; Visit Provider Advanced Practice Midwife
DX: O09.293 Supervision of pregnancy with other poor reproductive or obstetric history, third trimester (principal); O26.893 Other specified pregnancy related conditions, third trimester; O99.013 Anemia complicating pregnancy, third trimester; O98.813 Other maternal infectious and parasitic diseases complicating pregnancy, third trimester; B37.9 Candidiasis, unspecified; N89.8 Other specified noninflammatory disorders of vagina; Z3A.31 31 weeks gestation of pregnancy; Z79.899 Other long term (current) drug therapy
CPT/HCPCS: 0353U; 81003; 87480; 87510; 87660; 99212

== ENCOUNTER → 2022-11-13 14:56 | Outpatient (BNVA) | payer OTHER, SELFPAY | PROVIDERS: Visit Provider Advanced Practice Midwife | DX: O09.293 Supervision of pregnancy with other poor reproductive or obstetric history, third trimester (principal); Z3A.32 32 weeks gestation of pregnancy | CPT/HCPCS: 81003; 99212 ==

== ENCOUNTER → 2022-11-29 14:47 | Outpatient (BNVA) | payer OTHER, SELFPAY | PROVIDERS: Visit Provider Advanced Practice Midwife | DX: O36.5930 Maternal care for other known or suspected poor fetal growth, third trimester, not applicable or unspecified (principal); O99.013 Anemia complicating pregnancy, third trimester; Z3A.34 34 weeks gestation of pregnancy; Z23 Encounter for immunization | CPT/HCPCS: 90471; 90715; 99212 ==

== ENCOUNTER 2022-12-13 14:31 | Outpatient (REF) | payer OTHER, SELFPAY ==
[2022-12-14 11:00] LABS: CT PCR NOT DETECTED (Not Detect.); NG PCR NOT DETECTED (Not Detect.)
[2022-12-15 14:43] LABS: Allergic to Penicillin? No
== END 2022-12-13 14:32 | disposition home or self-care (01) ==
LOC: HO.LNP 14:31
PROVIDERS: Visit Provider Advanced Practice Midwife
DX: O99.013 Anemia complicating pregnancy, third trimester (principal); Z3A.36 36 weeks gestation of pregnancy
CPT/HCPCS: 0353U; 81003; 87150; 99212

== ENCOUNTER 2022-12-13 14:44 | Outpatient (REF) | payer OTHER, SELFPAY | END 2022-12-13 14:45 | disposition home or self-care (01) | LOC: HO.LAB 14:44 | PROVIDERS: Visit Provider Advanced Practice Midwife | DX: Z13.89 Encounter for screening for other disorder (principal) ==

== ENCOUNTER → 2022-12-25 12:51 | Outpatient (BNVA) | payer OTHER, SELFPAY | PROVIDERS: Visit Provider Advanced Practice Midwife | DX: Z34.83 Encounter for supervision of other normal pregnancy, third trimester (principal); Z3A.38 38 weeks gestation of pregnancy | CPT/HCPCS: 81003; 99212 ==

== ENCOUNTER → 2023-01-01 09:59 | Outpatient (BNVA) | payer OTHER, SELFPAY | PROVIDERS: Visit Provider Advanced Practice Midwife | DX: Z34.83 Encounter for supervision of other normal pregnancy, third trimester (principal); Z3A.39 39 weeks gestation of pregnancy | CPT/HCPCS: 81003; 99212 ==

== ENCOUNTER 2023-02-12 15:44 | Outpatient (AMB) | payer OTHER, SELFPAY ==
[2023-02-12 15:47] VITALS: BP 110/72; BMI 19.8
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
== END 2023-02-12 16:35 | disposition home or self-care (01) ==
LOC: HO.HWS 15:44
PROVIDERS: Visit Provider Advanced Practice Midwife
DX: Z39.2 Encounter for routine postpartum follow-up (principal); F53.0 Postpartum depression; F43.9 Reaction to severe stress, unspecified
CPT/HCPCS: 59426; 59430; S3005

== ENCOUNTER → 2023-02-12 15:44 | Outpatient (BNVA) | payer OTHER, SELFPAY | PROVIDERS: Visit Provider Advanced Practice Midwife ==

== ENCOUNTER 2023-03-12 15:19 | Outpatient (AMB) | payer OTHER, SELFPAY ==
[2023-03-12 15:25] VITALS: BP 114/76; BMI 19.5
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
== END 2023-03-12 16:21 | disposition home or self-care (01) ==
LOC: HO.HWS 15:19
PROVIDERS: Visit Provider Advanced Practice Midwife
DX: Z30.09 Encounter for other general counseling and advice on contraception (principal); Z20.2 Contact with and (suspected) exposure to infections with a predominantly sexual mode of transmission; F43.9 Reaction to severe stress, unspecified
CPT/HCPCS: 99213

== ENCOUNTER → 2023-03-12 15:19 | Outpatient (BNVA) | payer OTHER, SELFPAY | PROVIDERS: Visit Provider Advanced Practice Midwife | DX: Z20.2 Contact with and (suspected) exposure to infections with a predominantly sexual mode of transmission (principal); F43.9 Reaction to severe stress, unspecified; Z30.09 Encounter for other general counseling and advice on contraception | CPT/HCPCS: 99212 ==

== ENCOUNTER 2023-04-03 15:06 | Outpatient (AMB) | payer OTHER, SELFPAY ==
[2023-04-03 16:18] VITALS: BMI 19.2
--- NOTE | 2023-04-03 16:18 | AM.OFFVISNUR ---
Intake Vital Signs 04/03/23 16:18 Height 5 ft 1 in Weight 101 lb 6 oz BMI 19.2 Intake Visit Reasons: DEPO Enamel Sprayer Required: No Allergies No Known Allergies [No Known Allergies*] Allergy (Verified 03/12/23 15:28) Is last menstrual period known: No Post menopausal: No Patient : No Nursing Note Pt is here for scheduled Depo Provera injection. No c/o, no questions. Pt tolerated injection well. She will make another appt for 12 weeks out. Pt verbalizes understanding and agrees with plan. Office Procedures Depo Questionnaire If YES to any of the following questions, please consult a provider. Date of last injection: 01/05/23 Menstrual pattern since last injection has been: Not Applicable Irregular bleeding?: No Breast lumps or other breast changes?: No Changes in weight or appetite?: No Depression or changes in mood?: No Abnormal hair growth or loss?: No Skin problems (rash, acne, discoloration)?: No Pain at the injection site?: No Headaches?: No Nervousness?: No Abdominal pain or cramping?: No Dizziness or nausea?: No Fatigue or weakness?: No Decrease in sexual drive?: No Chest pain or shortness of breath?: No Swelling in arms or legs?: No Form completed by?: Padmini Peck turbine subassembler Meds Depo-Provera 150 mg/mL intramuscular syringe Performing Provider: Ariana Vazquez CNM [place]forming [place] [facility] Administered by: Padmini Peck on 04/03/23 16:22 Dose Route Admin Location Dispensed Lot Number Expiration Date [facility] Auger Operator 150 mg IM 1 mL [id number] 05/21/25 48369-121-08 [facility] Coding Level of Care Code Established Pt Est Pt Level 1 (99177) Patient Type Established History Problem Focused Medical Decision Making Straight Forward Time Spent (min) 13 Assessment & Plan Assessment & Plan Orders: Orders AMB Medroxyprogesterone Injection Patient Supplied Today Z30.42 - Encounter for surveillance of injectable contraceptive
== END 2023-04-03 16:14 | disposition home or self-care (01) ==
PROVIDERS: Visit Provider Advanced Practice Midwife
DX: Z30.42 Encounter for surveillance of injectable contraceptive (principal)

== ENCOUNTER → 2023-04-03 15:06 | Outpatient (BNVA) | payer OTHER, SELFPAY | PROVIDERS: Visit Provider Advanced Practice Midwife | DX: Z30.42 Encounter for surveillance of injectable contraceptive (principal) | CPT/HCPCS: 96372; 99211; J1050 ==

== ENCOUNTER 2023-05-14 15:49 | Outpatient (AMB) | payer OTHER, SELFPAY ==
[2023-05-14 16:05] VITALS: BP 118/72; PULSE 68; TEMP 36.6; O2SAT 98; BMI 19.1
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
== END 2023-05-14 16:42 | disposition home or self-care (01) ==
PROVIDERS: Visit Provider Internal Medicine
DX: N94.10 Unspecified dyspareunia (principal); R30.9 Painful micturition, unspecified
CPT/HCPCS: 81003; 99213

== ENCOUNTER 2023-06-02 08:45 | Emergency (ER) | payer OTHER, SELFPAY ==
[2023-06-02 08:48] VITALS: BP 124/80; PULSE 101; RESP 18; TEMP 37.2; O2SAT 99; BMI 18.9
[2023-06-02 09:27] LABS: IDNOW Serial# 08D9AD1C; Strep A Nucleic Acid Negative (Negative)
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
[2023-06-02 10:17] LABS: Appearance Urine Clear; Color Urine Dark Yellow; Glucose Urine UA Negative (Negative); Leukocyte Esterase Urine Negative (Negative); Nitrite Urine Negative (Negative); PH 5.5 (5.0-9.0); Specific Gravity - Urine >= 1.030 (1.005-1.025); UMIC TRIGGER UACC YES; Urine Blood Moderate (2+) (Negative); Urine Ketones 80 mg/dL (Negative); Urine Protein 100 (2+) mg/dL (Neg-Trace)
[2023-06-02 10:19] LABS: UPreg QC Valid YES; Urine Pregnancy NEGATIVE (NEGATIVE)
[2023-06-02 10:26] LABS: Bacteria Urine 1+ (None Seen); RBC Urine 0-2 /HPF (0-2); WBC Urine 0-5 /HPF (0-5)
[2023-06-02 10:46] LABS: Influenza A PCR NEGATIVE (Negative); Influenza B PCR NEGATIVE (Negative); Resp Syncy Virus RNA Qual PCR NEGATIVE (Negative); SARS COV2 PCR INHOUSE POSITIVE (Negative)
== END 2023-06-02 11:22 | disposition home or self-care (01) ==
PROVIDERS: Nurse Practitioner Family; Emergency Provider Emergency Medicine Emergency Medical Services
DX: U07.1 COVID-19 (principal); R11.2 Nausea with vomiting, unspecified; R19.7 Diarrhea, unspecified; M79.10 Myalgia, unspecified site; H92.01 Otalgia, right ear; Z79.899 Other long term (current) drug therapy
CPT/HCPCS: 0241U; 81001; 81025; 87651; 99283

== ENCOUNTER 2023-06-04 14:50 | Outpatient (AMB) | payer OTHER, SELFPAY ==
[2023-06-04 14:57] VITALS: BP 106/70; BMI 18.7
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
== END 2023-06-04 15:48 | disposition home or self-care (01) ==
LOC: HO.HWS 14:50
PROVIDERS: Visit Provider Advanced Practice Midwife
DX: R10.2 Pelvic and perineal pain (principal); U07.1 COVID-19; Z30.42 Encounter for surveillance of injectable contraceptive; N92.1 Excessive and frequent menstruation with irregular cycle; D64.9 Anemia, unspecified
CPT/HCPCS: 99213

== ENCOUNTER 2023-06-04 14:50 | Outpatient (REF) | payer OTHER, SELFPAY | END 2023-06-04 14:51 | disposition home or self-care (01) | LOC: HO.LAB 14:50 | PROVIDERS: Visit Provider Advanced Practice Midwife | DX: R10.2 Pelvic and perineal pain (principal); N92.1 Excessive and frequent menstruation with irregular cycle; D64.9 Anemia, unspecified | CPT/HCPCS: 81003; 81025; 99212 ==

== ENCOUNTER 2023-06-04 15:47 | Outpatient (REF) | payer OTHER, SELFPAY ==
[2023-06-05 11:01] LABS: CT PCR NOT DETECTED (Not Detect.); NG PCR NOT DETECTED (Not Detect.)
[2023-06-05 12:03] LABS: BV Int Neg Control Negative (Negative); BV Int Pos Control Positive (Positive)
== END 2023-06-04 15:48 | disposition home or self-care (01) ==
LOC: HO.LNP 15:47
PROVIDERS: Visit Provider Advanced Practice Midwife
DX: Z11.3 Encounter for screening for infections with a predominantly sexual mode of transmission (principal); R10.2 Pelvic and perineal pain; N92.3 Ovulation bleeding
CPT/HCPCS: 0353U; 87480; 87510; 87660

== ENCOUNTER 2023-06-04 15:52 | Outpatient (REF) | payer OTHER, SELFPAY ==
[2023-06-04 17:09] LABS: Hematocrit 38.7 % (37.0-47.0); Hemoglobin 12.5 g/dl (12.0-16.0); Mean Corpuscular HGB Conc 32.3 g/dl (31.0-35.0); Mean Corpuscular Hemoglobin 28.4 pg (27.0-33.0); Mean Platelet Volume 12.1 fL (9.4-12.3); Platelet Count 261 X10*3/uL (160-400); Red Cell Distribution Width 12.3 % (11.0-16.0); White Blood Count 5.4 X10*3/uL (4.8-10.8)
== END 2023-06-04 15:53 | disposition home or self-care (01) ==
LOC: HO.LAB 15:52
PROVIDERS: Visit Provider Advanced Practice Midwife
DX: N92.1 Excessive and frequent menstruation with irregular cycle (principal); D64.9 Anemia, unspecified
CPT/HCPCS: 36415; 84443; 85027

== ENCOUNTER → 2023-06-26 14:51 | Outpatient (BNVA) | payer OTHER, SELFPAY | PROVIDERS: Visit Provider Advanced Practice Midwife ==

== ENCOUNTER 2023-08-16 14:07 | Outpatient (REF) | payer OTHER, SELFPAY ==
[2023-08-17 09:20] LABS: CT PCR NOT DETECTED (Not Detect.); NG PCR NOT DETECTED (Not Detect.)
[2023-08-17 10:51] LABS: BV Int Neg Control Negative (Negative); BV Int Pos Control Positive (Positive)
== END 2023-08-16 14:08 | disposition home or self-care (01) ==
LOC: HO.LNP 14:07
PROVIDERS: Visit Provider Advanced Practice Midwife
DX: Z11.3 Encounter for screening for infections with a predominantly sexual mode of transmission (principal); N92.1 Excessive and frequent menstruation with irregular cycle; N92.3 Ovulation bleeding; Z30.09 Encounter for other general counseling and advice on contraception
CPT/HCPCS: 0353U; 87480; 87510; 87660; 99212

== ENCOUNTER 2023-08-16 14:07 | Outpatient (AMB) | payer OTHER, SELFPAY ==
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
[2023-08-16 14:11] VITALS: BMI 17.8
== END 2023-08-16 15:30 | disposition home or self-care (01) ==
LOC: HO.HWSM 14:07
PROVIDERS: Visit Provider Advanced Practice Midwife
DX: N92.1 Excessive and frequent menstruation with irregular cycle (principal); N92.3 Ovulation bleeding; Z20.2 Contact with and (suspected) exposure to infections with a predominantly sexual mode of transmission; Z30.09 Encounter for other general counseling and advice on contraception
CPT/HCPCS: 99213

== ENCOUNTER 2023-08-16 14:57 | Outpatient (REF) | payer OTHER, SELFPAY ==
[2023-08-16 16:42] LABS: HCG Quantitative < 2 mIU/mL
[2023-08-19 04:21] LABS: HBsAGNum1 0.38 S/CO (0.00-0.99); Hepatitis B Surface Antigen Negative (Negative); ~HepC Num1 0.14 S/CO (0.00-0.79); ~Hepatitis C Antibody Nonreactive (Nonreactive)
[2023-08-19 04:22] LABS: Syphilis Screen Nonreactive (Nonreactive)
[2023-08-19 04:35] LABS: HIV AB/AG Nonreactive (Nonreactive); HIV Num 1 0.08 S/CO (0.00-0.99)
== END 2023-08-16 14:58 | disposition home or self-care (01) ==
LOC: HO.HHCL 14:57
PROVIDERS: Visit Provider Advanced Practice Midwife
DX: N92.1 Excessive and frequent menstruation with irregular cycle (principal); N92.3 Ovulation bleeding; Z11.3 Encounter for screening for infections with a predominantly sexual mode of transmission
CPT/HCPCS: 36415; 84702; 86780; 86803; 87340; 87389

== ENCOUNTER 2023-09-15 17:49 | Emergency (ER) | payer OTHER, SELFPAY ==
[2023-09-15 18:16] VITALS: BP 109/66; PULSE 80; RESP 16; TEMP 36.9; O2SAT 98; BMI 18.5
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
[2023-09-15 18:37] LABS: IDNOW Serial# 58CA691E; Strep A Nucleic Acid Negative (Negative)
[2023-09-15 19:06] LABS: Influenza A PCR NEGATIVE (Negative); Influenza B PCR NEGATIVE (Negative); Resp Syncy Virus RNA Qual PCR NEGATIVE (Negative); SARS COV2 PCR INHOUSE NEGATIVE (Negative)
== END 2023-09-15 19:35 | disposition home or self-care (01) ==
PROVIDERS: Nurse Practitioner Family; Emergency Provider Emergency Medicine
DX: J02.9 Acute pharyngitis, unspecified (principal); Z20.822 Contact with and (suspected) exposure to COVID-19; Z11.52 Encounter for screening for COVID-19
CPT/HCPCS: 0241U; 87651; 99282; 99283

== ENCOUNTER 2023-09-30 08:39 | Emergency (ER) | payer OTHER, SELFPAY ==
[2023-09-30 09:14] VITALS: BP 122/62; PULSE 68; RESP 19; TEMP 36.4; O2SAT 98; BMI 19.5
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
[2023-09-30 10:39] LABS: IDNOW Serial# 58CA691E; Strep A Nucleic Acid Negative (Negative)
[2023-09-30 10:46] LABS: Influenza A PCR NEGATIVE (Negative); Influenza B PCR NEGATIVE (Negative); Resp Syncy Virus RNA Qual PCR NEGATIVE (Negative); SARS COV2 PCR INHOUSE NEGATIVE (Negative)
[2023-09-30 11:05] VITALS: BP 110/61; PULSE 69; RESP 18; TEMP 36.4; O2SAT 98
[2023-09-30] MEDS: dexAMETHasone sod phosphate 10 MG/ML VIAL PO (11:18)
== END 2023-09-30 11:22 | disposition home or self-care (01) ==
PROVIDERS: Emergency Provider Emergency Medicine
DX: J02.9 Acute pharyngitis, unspecified (principal); R05.9 Cough, unspecified; R19.7 Diarrhea, unspecified; Z11.52 Encounter for screening for COVID-19; Z20.828 Contact with and (suspected) exposure to other viral communicable diseases
CPT/HCPCS: 0241U; 87651; 99283; 99284; J1100

== ENCOUNTER 2023-10-15 12:54 | Outpatient (AMB) | payer OTHER, SELFPAY ==
[2023-10-15 13:03] VITALS: BP 106/60; BMI 19.1
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
== END 2023-10-15 13:29 | disposition home or self-care (01) ==
LOC: HO.HWSM 12:54
PROVIDERS: Visit Provider Advanced Practice Midwife
DX: Z30.09 Encounter for other general counseling and advice on contraception (principal); Z30.41 Encounter for surveillance of contraceptive pills
CPT/HCPCS: 99213

== ENCOUNTER 2023-10-15 12:54 | Outpatient (REF) | payer OTHER, SELFPAY ==
[2023-10-16 08:56] LABS: CT PCR NOT DETECTED (Not Detect.); NG PCR NOT DETECTED (Not Detect.)
[2023-10-16 10:20] LABS: BV Int Neg Control Negative (Negative); BV Int Pos Control Positive (Positive)
== END 2023-10-15 12:55 | disposition home or self-care (01) ==
LOC: HO.LNP 12:54
PROVIDERS: Visit Provider Advanced Practice Midwife
DX: Z30.41 Encounter for surveillance of contraceptive pills (principal)
CPT/HCPCS: 0353U; 87480; 87510; 87660; 99212

== ENCOUNTER 2023-10-15 13:33 | Outpatient (REF) | payer OTHER, SELFPAY ==
[2023-10-16 03:47] LABS: Syphilis Screen Nonreactive (Nonreactive)
[2023-10-16 04:14] LABS: HBsAGNum1 0.33 S/CO (0.00-0.99); HIV AB/AG Nonreactive (Nonreactive); HIV Num 1 0.08 S/CO (0.00-0.99); Hepatitis B Surface Antigen Negative (Negative); ~HepC Num1 0.18 S/CO (0.00-0.79); ~Hepatitis C Antibody Nonreactive (Nonreactive)
== END 2023-10-15 13:34 | disposition home or self-care (01) ==
LOC: HO.HHCL 13:33
PROVIDERS: Visit Provider Advanced Practice Midwife
DX: Z11.3 Encounter for screening for infections with a predominantly sexual mode of transmission (principal); Z11.4 Encounter for screening for human immunodeficiency virus [HIV]
CPT/HCPCS: 36415; 86780; 86803; 87340; 87389

== ENCOUNTER 2024-01-02 22:40 | Emergency (ER) | payer OTHER, SELFPAY ==
--- NOTE | ~2024-01-02 | CT_ITS ---
EXAMINATION: CT ABDOMEN AND PELVIS WITH CONTRAST CLINICAL INFORMATION: Abdominal pain. COMPARISON: None available. TECHNIQUE: Multidetector volumetric images were obtained from the superior aspect of the liver through the pubic symphysis following administration 85 mL of Omnipaque 350 intravenous contrast. Sagittal and coronal reformatted images were obtained on the technologist's workstation. Oral contrast: No This CT examination was performed using dose optimization techniques as appropriate, variously including the following: *Automated exposure control *Adjustment of mA and/or kV according to patient size (this includes techniques or standardized protocols for targeted exams where dose is matched to indication/reason for exam; i.e. extremities or head) *Use of iterative reconstruction technique DLP: 254 mGy-cm FINDINGS: LUNG BASES: No pleural or pericardial effusion. Pectus excavatum. LIVER, GALLBLADDER, AND BILIARY TREE: The liver is normal in size, shape, and attenuation. No focal hepatic lesion or biliary ductal dilatation is present. The gallbladder is mildly contracted. PANCREAS: Unremarkable. SPLEEN: Unremarkable. ADRENAL GLANDS: Unremarkable. KIDNEYS AND URETERS: The kidneys are symmetric in size and enhancement. No hydronephrosis or perinephric stranding. BLADDER: Underdistended. GASTROINTESTINAL TRACT: There is discontinuous wall thickening of small and large bowel loops with fluid-filled loops of small bowel in the pelvis. The appendix is within normal limits. No small bowel obstruction. ABDOMINAL WALL: No significant hernia is appreciated. LYMPH NODES: Subcentimeter mesenteric and retroperitoneal lymph nodes are nonspecific. VASCULAR: Normal caliber abdominal aorta. PELVIC VISCERA: Unremarkable. OSSEOUS STRUCTURES: No destructive bone lesions. CT/CT abdomen pelvis w IV con IMPRESSION: Discontinuous wall thickening of small and large bowel loops with fluid-filled loops of small bowel in the pelvis. This may represent enterocolitis. There are subcentimeter mesenteric lymph nodes which may be on a reactive basis. Advise clinical correlation.
[2024-01-02 22:56] VITALS: BP 105/60; PULSE 107; RESP 20; TEMP 36.3; O2SAT 98; BMI 18.9
[2024-01-02] MEDS: Ondansetron ODT 4 MG TAB.RAPDIS SUBLINGUAL (23:03)
[2024-01-02 23:18] LABS: Basophils Absolute Auto 0.1 X10*3/uL (0.0-0.2); Basophils Percent Auto 0.2 % (0-2); Eosinophils Absolute Auto 0.1 X10*3/uL (0.0-0.4); Eosinophils Percent Auto 0.4 % (0-4); Hematocrit 39.3 % (37.0-47.0); Hemoglobin 12.9 g/dl (12.0-16.0); Imm Gran Abs Auto 0.07 X10*3/uL (0.00-0.03); Imm Gran Pct Auto 0.3 % (0.0-0.4); Lymphocytes Absolute Auto 2.2 X10*3/uL (1.2-4.9); Lymphocytes Percent Auto 10.8 % (20-40); MANUAL DIFF FLAG NO; Mean Corpuscular HGB Conc 32.8 g/dl (31.0-35.0); Mean Corpuscular Hemoglobin 28.2 pg (27.0-33.0); Mean Platelet Volume 11.1 fL (9.4-12.3); Monocytes Absolute Auto 0.6 X10*3/uL (0.1-1.2); Monocytes Percent Auto 2.7 % (2-11); Neutrophils Absolute Auto 17.4 x10*3/uL (2.0-8.3); Neutrophils Percent Auto 85.6 % (45-73); Platelet Count 353 X10*3/uL (160-400); Red Blood Count 4.57 X10*6/uL (4.20-5.50); Red Cell Distribution Width 12.8 % (11.0-16.0); White Blood Count 20.3 X10*3/uL (4.8-10.8)
[2024-01-02 23:37] LABS: Alanine Aminotransferase 31 U/L (0-31); Albumin Level 4.5 g/dL (3.5-5.0); Alkaline Phosphatase 80 U/L (39-117); Anion Gap 12 (12-20); Aspartate Amino Transferase 30 U/L (5-31); Bilirubin Total 0.8 mg/dL (0.0-1.0); Blood Urea Nitrogen 14 mg/dL (9-16); Calcium 9.3 mg/dL (8.4-10.2); Carbon Dioxide 25 mmol/L (22-29); Chloride 107 mmol/L (96-108); Creatinine Clr Calc Pharmacy 81.7; Estimated Glomerular Filt Rate > 60; Glucose Random 126 mg/dL (60-115); Potassium 4.1 mmol/L (3.3-5.1); Sodium 140 mmol/L (135-145); Total Protein 8.6 g/dL (6.5-8.0)
[2024-01-03 01:20] VITALS: BP 122/56; PULSE 96; RESP 20; TEMP 37.2; O2SAT 97
[2024-01-03 01:56] VITALS: BP 104/46; PULSE 78; RESP 16; TEMP 37.2; O2SAT 100
[2024-01-03] MEDS: 0.9 % Sodium Chloride 1,000 ML 999 ML IV (03:18)
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
[2024-01-03 05:23] VITALS: BP 108/73; PULSE 88; RESP 16; TEMP 36.8; O2SAT 96
[2024-01-03] MEDS: Metoclopramide HCl 10 MG/2 ML VIAL IVPUSH (05:24)
[2024-01-03] MEDS: Famotidine/PF 20 MG/2 ML VIAL IVPUSH (05:24)
[2024-01-03] MEDS: 0.9 % Sodium Chloride 1,000 ML 999 ML IVCONT (05:24)
[2024-01-03] MEDS: diphenhydrAMINE HCL 50 MG/ML VIAL 25 MG IVPUSH (05:25)
[2024-01-03 05:27] LABS: Lipase 25 U/L (8-78)
--- NOTE | 2024-01-03 05:28 | PC.NURSE ---
UA obtained/sent to lab. IVF/medication administered per provider order. effectiveness pending. pt waiting to go to CT at this time.
[2024-01-03 05:32] LABS: HCG Quantitative < 2 mIU/mL
[2024-01-03 05:43] LABS: Appearance Urine Cloudy; Color Urine Dark Yellow; Glucose Urine UA Negative (Negative); Leukocyte Esterase Urine Moderate (2+) (Negative); Nitrite Urine Negative (Negative); PH 5.5 (5.0-9.0); Specific Gravity - Urine >= 1.030 (1.005-1.025); UMIC TRIGGER UACC YES; Urine Blood Negative (Negative); Urine Ketones Negative (Negative); Urine Protein Trace mg/dL (Neg-Trace)
[2024-01-03 05:44] LABS: UPreg QC Valid YES; Urine Pregnancy NEGATIVE (NEGATIVE)
[2024-01-03 05:45] LABS: Bacteria Urine 2+ (None Seen); Hyaline Casts Urine 0-2 /LPF (0-2); RBC Urine 0-2 /HPF (0-2); UACC Culture Trigger YES; WBC Urine >50 /HPF (0-5)
[2024-01-03] MEDS: iohexoL 350 MG/ML 100 ML INFUS..BTL 85 ML IV (06:19)
[2024-01-03] MEDS: cefTRIAXone sodium 1 GM in 0.9 % Sodium Chloride 50 ML IV (07:42)
[2024-01-03] MEDS: metroNIDAZOLE/NS 500 MG/100 ML PIGGYBACK 100 MG IV (07:45)
--- NOTE | 2024-01-03 07:45 | PC.NURSE ---
cultures/lactic obtained by tech. abx administered per provider order. CT results still pending at this time. plan of care ongoing.
[2024-01-03 07:50] VITALS: BP 109/59; PULSE 87; RESP 16; TEMP 37.1; O2SAT 98
[2024-01-03 07:59] LABS: Lactic Acid 0.9 mmol/L (0.5-2.0)
--- NOTE | 2024-01-03 09:16 | PC.NURSE ---
PO CHALLENGE GIVEN
[2024-01-03 09:32] VITALS: BP 103/51; PULSE 85; RESP 18; TEMP 36.7; O2SAT 98
== END 2024-01-03 09:33 | disposition home or self-care (01) ==
PROVIDERS: Emergency Medicine; Emergency Provider Emergency Medicine
DX: R11.2 Nausea with vomiting, unspecified (principal); N76.0 Acute vaginitis; R10.9 Unspecified abdominal pain; R11.0 Nausea; Z79.899 Other long term (current) drug therapy
CPT/HCPCS: 36415; 74177; 80053; 81001; 81025; 83605; 83690; 84702; 85025; 87040; 87086; 96361; 96365; 96367; 96375; 99285; J0696; J1200; J1836; J2765; Q9967

== ENCOUNTER 2024-01-29 14:02 | Emergency (ER) | payer OTHER, SELFPAY ==
[2024-01-29 14:05] VITALS: BP 135/80; PULSE 86; RESP 16; TEMP 36.1; O2SAT 99; BMI 18.4
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
[2024-01-29 16:03] LABS: MANUAL DIFF FLAG NO
[2024-01-29 16:06] LABS: Basophils Percent Auto 0.6 % (0-2); Eosinophils Absolute Auto 0.1 X10*3/uL (0.0-0.4); Eosinophils Percent Auto 2.1 % (0-4); Hematocrit 37.4 % (37.0-47.0); Imm Gran Abs Auto 0.02 X10*3/uL (0.00-0.03); Imm Gran Pct Auto 0.3 % (0.0-0.4); Lymphocytes Absolute Auto 2.5 X10*3/uL (1.2-4.9); Lymphocytes Percent Auto 39.4 % (20-40); Mean Corpuscular HGB Conc 32.1 g/dl (31.0-35.0); Mean Corpuscular Hemoglobin 28.3 pg (27.0-33.0); Mean Corpuscular Volume 88.2 fL (80.0-98.0); Mean Platelet Volume 11.5 fL (9.4-12.3); Monocytes Absolute Auto 0.3 X10*3/uL (0.1-1.2); Monocytes Percent Auto 4.9 % (2-11); Neutrophils Absolute Auto 3.3 x10*3/uL (2.0-8.3); Neutrophils Percent Auto 52.7 % (45-73); Platelet Count 250 X10*3/uL (160-400); Red Blood Count 4.24 X10*6/uL (4.20-5.50); White Blood Count 6.3 X10*3/uL (4.8-10.8)
[2024-01-29 16:26] LABS: Alanine Aminotransferase 10 U/L (0-31); Albumin Level 4.2 g/dL (3.5-5.0); Alkaline Phosphatase 85 U/L (39-117); Anion Gap 13 (12-20); Aspartate Amino Transferase 16 U/L (5-31); Bilirubin Direct 0.2 mg/dL (0.0-0.5); Bilirubin Total 0.5 mg/dL (0.0-1.0); Blood Urea Nitrogen 10 mg/dL (9-16); Calcium 9.8 mg/dL (8.4-10.2); Carbon Dioxide 26 mmol/L (22-29); Chloride 106 mmol/L (96-108); Creatinine Clr Calc Pharmacy 81.6; Estimated Glomerular Filt Rate > 60; Glucose Random 90 mg/dL (60-115); HCG Quantitative < 2 mIU/mL; Potassium 4.2 mmol/L (3.3-5.1); Sodium 141 mmol/L (135-145); Total Protein 8.4 g/dL (6.5-8.0)
[2024-01-29 16:38] VITALS: BP 113/71; PULSE 74; RESP 18; TEMP 36.8; O2SAT 98
[2024-01-29 16:43] VITALS: BP 120/82; PULSE 80; RESP 18; TEMP 36.8; O2SAT 99
== END 2024-01-29 16:45 | disposition home or self-care (01) ==
PROVIDERS: Physician Assistant Medical; Emergency Provider Emergency Medicine
DX: N93.9 Abnormal uterine and vaginal bleeding, unspecified (principal); Z79.899 Other long term (current) drug therapy
CPT/HCPCS: 36415; 80048; 80076; 84702; 85025; 99283

== ENCOUNTER 2024-02-19 14:25 | Outpatient (REF) | payer OTHER, SELFPAY | END 2024-02-19 14:26 | disposition home or self-care (01) | LOC: HO.LNP 14:25 | PROVIDERS: Visit Provider Advanced Practice Midwife | DX: Z01.419 Encounter for gynecological examination (general) (routine) without abnormal findings (principal) | CPT/HCPCS: 81025; 99395 ==

== ENCOUNTER 2024-02-19 14:25 | Outpatient (AMB) | payer OTHER, SELFPAY ==
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
[2024-02-19 14:47] VITALS: BP 122/80; BMI 18.5
== END 2024-02-19 15:29 | disposition home or self-care (01) ==
LOC: HO.HWS 14:25
PROVIDERS: Visit Provider Advanced Practice Midwife
DX: Z32.02 Encounter for pregnancy test, result negative (principal); Z01.419 Encounter for gynecological examination (general) (routine) without abnormal findings
CPT/HCPCS: 99395

== ENCOUNTER 2024-02-19 15:26 | Outpatient (REF) | payer OTHER, SELFPAY ==
[2024-02-20 05:04] LABS: CT PCR DETECTED (Not Detect.); NG PCR NOT DETECTED (Not Detect.)
[2024-02-20 09:52] LABS: Bacterial Vaginosis PCR POSITIVE (Negative); Candida Group PCR DETECTED (Not Detect); Candida glab krusei PCR NOT DETECTED (Not Detect); Trichomonas vaginalis PCR NOT DETECTED (Not Detect)
[2024-02-27 03:39] LABS: HPV mRNA E6/E7 Not Detected (Not Detected)
== END 2024-02-19 15:27 | disposition home or self-care (01) ==
LOC: HO.LAB 15:26
PROVIDERS: Visit Provider Advanced Practice Midwife
DX: Z01.419 Encounter for gynecological examination (general) (routine) without abnormal findings (principal); Z20.2 Contact with and (suspected) exposure to infections with a predominantly sexual mode of transmission
CPT/HCPCS: 0352U; 36415; 87491; 87591; 87624; 87625; 88175

== ENCOUNTER 2024-02-24 08:58 | Outpatient (REF) | payer OTHER, SELFPAY ==
[2024-02-24 10:55] LABS: Syphilis Screen Nonreactive (Nonreactive)
[2024-02-24 11:02] LABS: HBsAGNum1 0.27 S/CO (0.00-0.99); HIV AB/AG Nonreactive (Nonreactive); HIV Num 1 0.06 S/CO (0.00-0.99); Hepatitis B Surface Antigen Negative (Negative); ~HepC Num1 0.21 S/CO (0.00-0.79); ~Hepatitis C Antibody Nonreactive (Nonreactive)
== END 2024-02-24 08:59 | disposition home or self-care (01) ==
LOC: HO.LAB 08:58
PROVIDERS: Visit Provider Obstetrics & Gynecology
DX: Z20.2 Contact with and (suspected) exposure to infections with a predominantly sexual mode of transmission (principal)
CPT/HCPCS: 36415; 86780; 86803; 87340; 87389

== ENCOUNTER 2024-03-31 09:38 | Outpatient (AMB) | payer OTHER, SELFPAY ==
[2024-03-31 09:42] VITALS: BP 106/60; BMI 18.5
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
== END 2024-03-31 11:23 | disposition home or self-care (01) ==
PROVIDERS: Visit Provider Advanced Practice Midwife
DX: R87.619 Unspecified abnormal cytological findings in specimens from cervix uteri (principal); N92.6 Irregular menstruation, unspecified; Z11.3 Encounter for screening for infections with a predominantly sexual mode of transmission; A74.9 Chlamydial infection, unspecified; Z32.02 Encounter for pregnancy test, result negative
CPT/HCPCS: 99213

== ENCOUNTER 2024-03-31 09:38 | Outpatient (REF) | payer OTHER, SELFPAY ==
[2024-04-01 07:31] LABS: CT PCR NOT DETECTED (Not Detect.); NG PCR NOT DETECTED (Not Detect.)
[2024-04-01 11:28] LABS: Bacterial Vaginosis PCR NEGATIVE (Negative); Candida Group PCR NOT DETECTED (Not Detect); Candida glab krusei PCR NOT DETECTED (Not Detect); Trichomonas vaginalis PCR NOT DETECTED (Not Detect)
== END 2024-03-31 09:39 | disposition home or self-care (01) ==
LOC: HO.LAB 09:38
PROVIDERS: Visit Provider Advanced Practice Midwife
DX: N89.8 Other specified noninflammatory disorders of vagina (principal); Z20.2 Contact with and (suspected) exposure to infections with a predominantly sexual mode of transmission; R87.619 Unspecified abnormal cytological findings in specimens from cervix uteri; Z11.3 Encounter for screening for infections with a predominantly sexual mode of transmission; A74.9 Chlamydial infection, unspecified
CPT/HCPCS: 0352U; 81025; 87491; 87591; 99212

== ENCOUNTER 2024-04-25 09:34 | Outpatient (REF) | payer OTHER, SELFPAY ==
[2024-04-25 11:51] LABS: HCG Quantitative < 2 mIU/mL
== END 2024-04-25 09:35 | disposition home or self-care (01) ==
LOC: HO.LAB 09:34
PROVIDERS: Visit Provider Advanced Practice Midwife
DX: A74.9 Chlamydial infection, unspecified (principal); R87.619 Unspecified abnormal cytological findings in specimens from cervix uteri; N92.6 Irregular menstruation, unspecified
CPT/HCPCS: 36415; 84702

== ENCOUNTER 2024-05-14 15:04 | Outpatient (AMB) | payer OTHER, SELFPAY ==
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
[2024-05-14 15:12] VITALS: BP 110/60; BMI 18.5
== END 2024-05-14 16:00 ==
PROVIDERS: Visit Provider Advanced Practice Midwife
DX: D64.9 Anemia, unspecified (principal); R87.619 Unspecified abnormal cytological findings in specimens from cervix uteri; N92.6 Irregular menstruation, unspecified; A74.9 Chlamydial infection, unspecified; Z32.02 Encounter for pregnancy test, result negative
CPT/HCPCS: 99213

== ENCOUNTER → 2024-05-14 15:04 | Outpatient (BNVA) | payer OTHER, SELFPAY | PROVIDERS: Visit Provider Advanced Practice Midwife | DX: D64.9 Anemia, unspecified (principal); R87.619 Unspecified abnormal cytological findings in specimens from cervix uteri; N91.2 Amenorrhea, unspecified; A74.9 Chlamydial infection, unspecified | CPT/HCPCS: 81025; 99212 ==

== ENCOUNTER 2024-05-16 10:06 | Outpatient (REF) | payer OTHER, SELFPAY ==
[2024-05-16 11:47] LABS: Hematocrit 39.8 % (37.0-47.0); Hemoglobin 13.3 g/dl (12.0-16.0); Mean Corpuscular HGB Conc 33.4 g/dl (31.0-35.0); Mean Corpuscular Hemoglobin 29.5 pg (27.0-33.0); Mean Corpuscular Volume 88.2 fL (80.0-98.0); Mean Platelet Volume 11.9 fL (9.4-12.3); Platelet Count 249 X10*3/uL (160-400); Red Blood Count 4.51 X10*6/uL (4.20-5.50); Red Cell Distribution Width 12.7 % (11.0-16.0); White Blood Count 5.9 X10*3/uL (4.8-10.8)
[2024-05-16 12:02] LABS: Alanine Aminotransferase 20 U/L (0-31); Albumin Level 4.6 g/dL (3.5-5.0); Alkaline Phosphatase 59 U/L (39-117); Anion Gap 13 (12-20); Aspartate Amino Transferase 23 U/L (5-31); Bilirubin Total 0.9 mg/dL (0.0-1.0); Blood Urea Nitrogen 9 mg/dL (9-16); Calcium 9.7 mg/dL (8.4-10.2); Carbon Dioxide 26 mmol/L (22-29); Chloride 105 mmol/L (96-108); Estimated Glomerular Filt Rate > 60; Glucose Fasting 83 mg/dL (60-99); HBsAGNum1 0.32 S/CO (0.00-0.99); HIV AB/AG Nonreactive (Nonreactive); Hepatitis B Surface Antigen Negative (Negative); Potassium 3.9 mmol/L (3.3-5.1); Sodium 140 mmol/L (135-145); Syphilis Screen Nonreactive (Nonreactive); Total Protein 8.2 g/dL (6.5-8.0); ~Hepatitis C Antibody Nonreactive (Nonreactive)
[2024-05-16 12:10] LABS: Free T4 (Free Thyroxine) 0.87 ng/dL (0.71-1.85); HCG Quantitative < 2 mIU/mL; Thyroid Stimulating Hormone 1.41 uIU/mL (0.32-4.0)
[2024-05-18 06:33] LABS: DHEA Sulfate 241 mcg/dL (14-349); Follicle Stimulating Hormone 5.9 mIU/mL; Lutenizing Hormone 6.6 mIU/mL; Prolactin 8.2 ng/mL
[2024-05-21 12:08] LABS: Testosterone, Free 4.5 pg/mL (0.1-6.4); Testosterone, Total 35 ng/dL (2-45)
== END 2024-05-16 10:07 | disposition home or self-care (01) ==
LOC: HO.LAB 10:06
PROVIDERS: Visit Provider Advanced Practice Midwife
DX: D64.9 Anemia, unspecified (principal); N92.6 Irregular menstruation, unspecified; A74.9 Chlamydial infection, unspecified; R87.619 Unspecified abnormal cytological findings in specimens from cervix uteri
CPT/HCPCS: 36415; 80053; 82627; 83001; 83002; 84146; 84402; 84403; 84439; 84443; 84702; 85027; 86780; 86803; 87340; 87389

== ENCOUNTER 2024-05-20 13:23 | Outpatient (REF) | payer OTHER, SELFPAY ==
--- NOTE | ~2024-05-20 | US_ITS ---
EXAMINATION: US PELVIS CLINICAL INFORMATION: Irregular menstruation. COMPARISON: None available. TECHNIQUE: Ultrasound of the pelvis is performed using both transabdominal and transvaginal transducers along with Doppler. Transvaginal imaging is performed due to inadequate visualization transabdominally. FINDINGS: Uterus: The uterus is anteverted , anteflexed and measures 6.2 x 3.0 x 3.6 cm. The double wall endometrial thickness is 0.2 cm. The uterus is smooth in contour and has normal myometrial echogenicity. No visible fibroid. Adnexa: Both ovaries are visualized. There is normal color flow to the adnexa. There is no ovarian torsion. There is no pelvic ascites or fluid collection. Right ovary measures 3.6 x 2.1 x 2.8 cm. Volume 11.1 mL. There are small follicular cysts seen. Left ovary measures 3.0 x 1.8 x 2.4 CM. volume 6.8 mL there are small follicular cysts visualized. There is small amount of free fluid in the cul-de-sac US/US pelvic and transvaginal IMPRESSION: 1. Small amount of free fluid in the cul-de-sac. 2. Small follicular cysts in both ovaries. 3. The uterus is unremarkable. Electronically signed by: Kiel Briones MD 05/20/2024 10:00 PM EDT
== END 2024-05-20 13:24 | disposition home or self-care (01) ==
LOC: HO.US 13:23
PROVIDERS: Visit Provider Advanced Practice Midwife
DX: N92.6 Irregular menstruation, unspecified (principal); R87.619 Unspecified abnormal cytological findings in specimens from cervix uteri; D64.9 Anemia, unspecified
CPT/HCPCS: 76830; 76856

== ENCOUNTER 2024-06-15 13:08 | Outpatient (AMB) | payer OTHER, SELFPAY ==
[2024-06-15 13:10] VITALS: BP 110/60; BMI 18.5
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
== END 2024-06-15 13:42 | disposition home or self-care (01) ==
LOC: HO.HWSM 13:08
PROVIDERS: Visit Provider Advanced Practice Midwife
DX: R87.619 Unspecified abnormal cytological findings in specimens from cervix uteri (principal); N92.6 Irregular menstruation, unspecified; R63.6 Underweight; Z68.1 Body mass index [BMI] 19.9 or less, adult
CPT/HCPCS: 99213

== ENCOUNTER → 2024-06-15 13:08 | Outpatient (BNVA) | payer OTHER, SELFPAY | PROVIDERS: Visit Provider Advanced Practice Midwife | DX: N92.6 Irregular menstruation, unspecified (principal); R87.619 Unspecified abnormal cytological findings in specimens from cervix uteri; N83.02 Follicular cyst of left ovary; N83.01 Follicular cyst of right ovary; R63.6 Underweight; Z68.1 Body mass index [BMI] 19.9 or less, adult | CPT/HCPCS: 99212 ==

== ENCOUNTER 2024-07-17 10:29 | Emergency (ER) | payer OTHER, SELFPAY ==
[2024-07-17 10:52] VITALS: BP 137/70; PULSE 121; RESP 18; TEMP 38.1; O2SAT 99; BMI 18.9
[2024-07-17 11:10] LABS: MANUAL DIFF FLAG NO
[2024-07-17 11:13] LABS: Basophils Percent Auto 0.5 % (0-2); Eosinophils Percent Auto 0.1 % (0-4); Hematocrit 40.8 % (37.0-47.0); Hemoglobin 13.4 g/dl (12.0-16.0); Imm Gran Abs Auto 0.03 X10*3/uL (0.00-0.03); Imm Gran Pct Auto 0.3 % (0.0-0.4); Lymphocytes Absolute Auto 0.6 X10*3/uL (1.2-4.9); Lymphocytes Percent Auto 6.3 % (20-40); Mean Corpuscular HGB Conc 32.8 g/dl (31.0-35.0); Mean Corpuscular Hemoglobin 29.5 pg (27.0-33.0); Mean Corpuscular Volume 89.9 fL (80.0-98.0); Mean Platelet Volume 11.4 fL (9.4-12.3); Monocytes Absolute Auto 0.5 X10*3/uL (0.1-1.2); Monocytes Percent Auto 5.5 % (2-11); Neutrophils Absolute Auto 7.6 x10*3/uL (2.0-8.3); Neutrophils Percent Auto 87.3 % (45-73); Platelet Count 222 X10*3/uL (160-400); Red Blood Count 4.54 X10*6/uL (4.20-5.50); Red Cell Distribution Width 11.8 % (11.0-16.0); White Blood Count 8.8 X10*3/uL (4.8-10.8)
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
[2024-07-17 11:20] VITALS: BP 120/70; PULSE 117; RESP 18; TEMP 36.6; O2SAT 98
[2024-07-17 11:28] LABS: Anion Gap 10 (12-20); Blood Urea Nitrogen 8 mg/dL (9-16); Calcium 9.6 mg/dL (8.4-10.2); Carbon Dioxide 30 mmol/L (22-29); Chloride 101 mmol/L (96-108); Creatinine Clr Calc Pharmacy 91.4; Estimated Glomerular Filt Rate > 60; Glucose Random 108 mg/dL (60-115); Potassium 4.3 mmol/L (3.3-5.1); Sodium 137 mmol/L (135-145)
[2024-07-17 11:54] LABS: HCG Quantitative < 2 mIU/mL
[2024-07-17 12:07] LABS: Alanine Aminotransferase 14 U/L (0-31); Albumin Level 4.7 g/dL (3.5-5.0); Alkaline Phosphatase 69 U/L (39-117); Aspartate Amino Transferase 23 U/L (5-31); Bilirubin Direct 0.4 mg/dL (0.0-0.5); Lipase 14 U/L (8-78); Total Protein 8.7 g/dL (6.5-8.0)
[2024-07-17] MEDS: 0.9 % Sodium Chloride 1,000 ML 999 ML IVCONT ×2 (12:09→15:28)
[2024-07-17 12:10] VITALS: TEMP 38.3
[2024-07-17] MEDS: ondansetron HCL 4 MG/2 ML VIAL IVPUSH (12:13)
[2024-07-17] MEDS: Ketorolac Tromethamine 15 MG/ML VIAL IVPUSH (15:28)
[2024-07-17] MEDS: Metoclopramide HCl 10 MG/2 ML VIAL IVPUSH (15:29)
[2024-07-17 16:01] VITALS: BP 101/56; PULSE 100; RESP 16; TEMP 37.6; O2SAT 97
[2024-07-17 16:45] LABS: Influenza A PCR POSITIVE (Negative); Influenza B PCR NEGATIVE (Negative); Resp Syncy Virus RNA Qual PCR NEGATIVE (Negative); SARS COV2 PCR INHOUSE NEGATIVE (Negative)
[2024-07-17 17:32] VITALS: BP 101/56; PULSE 100; RESP 16; TEMP 37.6; O2SAT 97
== END 2024-07-17 17:33 | disposition home or self-care (01) ==
PROVIDERS: Emergency Medicine; Emergency Provider Emergency Medicine
DX: B34.9 Viral infection, unspecified (principal); R11.2 Nausea with vomiting, unspecified; R50.9 Fever, unspecified; Z03.818 Encounter for observation for suspected exposure to other biological agents ruled out; Z79.899 Other long term (current) drug therapy
CPT/HCPCS: 0241U; 36415; 80048; 80076; 83690; 84702; 85025; 96361; 96374; 96375; 99284; 99285; J1885; J2405; J2765